=== PATIENT | male | born 1950 | race Caucasian/White ===

== ENCOUNTER 2023-10-15 16:21 | Emergency (ER) | payer MEDICARE ==
[~2023-10-15] VITALS: Ht 185.4 cm; Wt 79.0 kg
[2023-10-15 16:27] VITALS: BP 133/77
[2023-10-15 16:30] VITALS: BP 115/66
[2023-10-15 16:45] VITALS: BP 117/63
[2023-10-15 17:27] VITALS: BP 117/63
== END 2023-10-15 17:30 | disposition home or self-care (01) ==
LOC: ED 16:21
PROC: 3E1B78Z Irrigation of Ear using Irrigating Substance, Via Natural or Artificial Opening (ICD-10-PCS; principal; 2023-10-15)
PROC: 3E1B78Z Irrigation of Ear using Irrigating Substance, Via Natural or Artificial Opening (ICD-10-PCS; 2023-10-15)
DX: H61.23 Impacted cerumen, bilateral (principal)